=== PATIENT | female | born 1940 | race Caucasian/White ===

== ENCOUNTER 2021-06-03 16:56 | Emergency (ER) | payer OTHER ==
[2021-06-03 17:13] VITALS: BP 106/67; PULSE 101; TEMP 98.4; BMI 21.0
[2021-06-03] MEDS ORDERED: BEBTELOVIMAB (EUA) 175 MG/2 ML VIAL IVPUSH ONE (17:53)
== END 2021-06-03 21:37 | disposition home or self-care (01) ==
LOC: JCOVINFU 16:56
DX: U07.1 COVID-19 (principal)
CPT/HCPCS: 96374; 99284-25; M0222; Q0222